=== PATIENT | male | born 1990 | race African-American/Black ===

== ENCOUNTER 2020-12-18 15:52 | Emergency (ER) | payer OTHER, SELFPAY ==
[2020-12-18 15:56] VITALS: BP 148/81; PULSE 100; RESP 16; TEMP 36.7; O2SAT 100
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
[2020-12-18] MEDS: TETANUS,DIPHTHERIA,AC PERTUSSIS ADULT (0.5 ML) BOOSTRIX IM (17:33)
[2020-12-18 17:55] VITALS: BP 148/88; PULSE 72; RESP 16; O2SAT 98
== END 2020-12-18 17:56 | disposition home or self-care (01) ==
PROVIDERS: Emergency Provider Emergency Medicine
DX: S29.011A Strain of muscle and tendon of front wall of thorax, initial encounter (principal); S01.511A Laceration without foreign body of lip, initial encounter; Z23 Encounter for immunization; V49.40XA Driver injured in collision with unspecified motor vehicles in traffic accident, initial encounter
CPT/HCPCS: 90471; 90715; 99283